=== PATIENT | male | born 1985 | race Caucasian/White ===

== ENCOUNTER 2016-08-12 00:09 | Emergency (ER) | payer SELFPAY ==
[~2016-08-12] VITALS: Ht 175.3 cm; Wt 115.7 kg
[2016-08-12 00:10] VITALS: BP 109/62; PULSE 65; RESP 18; TEMP 98.3; O2SAT 100
--- NOTE | 2016-08-12 00:10 | NUR ---
Placed in hallway. Report given to Rigo DIALLO.
--- NOTE | 2016-08-12 00:10 | NUR ---
Talked to Brando from [facility] on this ALS run. He stated that he okayed the transfer to [facility].
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
--- NOTE | 2016-08-12 00:20 | NUR ---
MD goss at bedside examining pt
[2016-08-12 00:51] VITALS: BP 106/57; PULSE 66; RESP 18; TEMP 98.3; O2SAT 100
--- NOTE | 2016-08-12 00:51 | NUR ---
Patient given written and verbal discharge instructions and verbalizes understanding. ER MD Gilliland discussed with patient the results and treatment provided. Patient in stable condition. ID arm band removed. No Rx given. Patient educated on pain management and to follow up with PMD. Pain Scale 0/10 Opportunity for questions provided and answered. Accompanied off ED by law enforcement
== END 2016-08-12 00:51 ==
LOC: EDSEX 00:09 → SED 00:09
DX: S00.33XA Contusion of nose, initial encounter (principal); F10.129 Alcohol abuse with intoxication, unspecified; V89.2XXA Person injured in unspecified motor-vehicle accident, traffic, initial encounter; Y93.89 Activity, other specified; Y92.89 Other specified places as the place of occurrence of the external cause; Y99.8 Other external cause status
CPT/HCPCS: 99283